=== PATIENT | male | born 2000 | race Caucasian/White ===

== ENCOUNTER → 2019-08-12 08:37 | Outpatient (CLI) | payer BC, SELFPAY ==
[2019-08-12 10:17] LABS: AST(SGOT) 15 U/L (15-37); Alanine Aminotransfer ALT/SGPT 34 U/L (16-61); Cholesterol 141 mg/dL (200); High Density Lipoprotein 43 mg/dL; Triglycerides 75 mg/dL; Very Low Density Lipoprotein 15 mg/dL (5-40)
== END ==
PROVIDERS: Family Provider Family Medicine; PCP Family Medicine; Referring Provider Dermatology; Visit Provider Dermatology
DX: Z79.899 Other long term (current) drug therapy (principal); L70.0 Acne vulgaris; L23.3 Allergic contact dermatitis due to drugs in contact with skin
CPT/HCPCS: 36415; 80061; 84450; 84460

== ENCOUNTER → 2019-10-10 | Outpatient (CLI) | payer BC, SELFPAY ==
[2019-10-10 13:20] LABS: AST(SGOT) 19 U/L (15-37); Alanine Aminotransfer ALT/SGPT 40 U/L (16-61); Cholesterol 166 mg/dL (200); High Density Lipoprotein 40 mg/dL; Triglycerides 85 mg/dL; Very Low Density Lipoprotein 17 mg/dL (5-40)
== END | disposition home or self-care (01) ==
PROVIDERS: PCP Family Medicine; Referring Provider Dermatology; Visit Provider Dermatology
DX: Z79.899 Other long term (current) drug therapy (principal); L70.0 Acne vulgaris; L23.3 Allergic contact dermatitis due to drugs in contact with skin
CPT/HCPCS: 36415; 80061; 84450; 84460